=== PATIENT | male | born 1970 | race Caucasian/White ===

== ENCOUNTER → 2019-10-16 | Outpatient (CLI) | payer OTHER ==
--- NOTE | 2019-10-17 13:17 | SLEEP ---
DATE OF STUDY: 10/16/2019 SLEEP STUDY ATTENDING PHYSICIAN: Dr. Ayla Chaidez. The patient is a 49-year-old who weighs 250 pounds with a BMI of 36. The patient underwent split night study performed at [facility]. During the night study, the patient spent 438 minutes in bed and slept for 316 minutes with a sleep efficiency of 72%. Sleep latency was 14 minutes with a REM latency of 93 minutes. Sleep architecture showed increased stage 1 and stage 2 sleep, increased slow wave and reduced REM sleep. During the initial diagnostic portion of the study, the patient slept for 89 minutes. The patient had 40 hypopneas, no obstructive apneas, 1 mixed apnea, and no central apneas. The patient's AHI was 28 per hour with a REM AHI of 53 per hour and a supine AHI of 46 per hour. EKG monitoring revealed normal sinus rhythm, average heart rate 78 beats per minute, no arrhythmias observed. No PLM seen. Nocturnal oximetry study revealed an average oxygen saturation of 94% with lowest of 87%. The patient met the criteria for CPAP initiation. It was started at 5 cm water and titrated up to 13 cm water. At the final pressure, the patient slept for 44 minutes. The patient's AHI was reduced to 1 per hour. The patient had no REM sleep, but supine sleep. The patient used a large size mask. IMPRESSION: 1. Moderate obstructive sleep apnea with worsening during supine and REM sleep. Total AHI 28 per hour with a supine AHI of 46 per hour and a REM AHI of 53 per hour. 2. Nocturnal hypoxia secondary to obstructive sleep apnea, but resolved with CPAP. 3. No evidence of periodic leg movements. RECOMMENDATIONS: 1. CPAP at 13 cm water completely eliminated the patient's sleep apnea and should be used on a nightly basis. 2. Follow up in 4-6 weeks to assess compliance with CPAP and to document clinical improvement. 3. Weight loss is strongly advised. 4. Avoid T[employer] depressants. 5. Caution regarding driving until symptoms of sleep apnea resolve with the use of CPAP. KAILEE HERNANDEZ MD DR: FÉLIX/hasmukh JOB#: [id number] / [id number] AYLA Ruth MD
== END | disposition home or self-care (01) ==
LOC: RT 18:56
PROVIDERS: ATTEND Family Medicine
DX: G47.33 Obstructive sleep apnea (adult) (pediatric) (principal); G47.34 Idiopathic sleep related nonobstructive alveolar hypoventilation; Z68.36 Body mass index [BMI] 36.0-36.9, adult
CPT/HCPCS: 95810

== ENCOUNTER → 2020-09-10 | Outpatient (CLI) | payer OTHER ==
[2020-09-10 13:33] LABS: BASO % 1 % (0-3); EOS # 0.1 x10^3/uL (0.0-0.7); EOS % 2 % (0-3); HEMATOCRIT 46.1 % (39.0-53.0); HEMOGLOBIN 16.3 g/dL (13.0-17.5); LYMPH # 1.7 x10^3/uL (1.0-4.8); LYMPH % 31 % (24-48); MEAN CORPUSCULAR HEMOGLOBIN 31 pg (25-35); MEAN CORPUSCULAR HGB CONC 35 g/dL (31-37); MEAN CORPUSCULAR VOLUME 88 fL (79-100); MONO # 0.5 x10^3/uL (0.0-1.1); MONO % 9 % (0-9); NEUT # 3.2 x10^3/uL (1.8-7.7); NEUT % 58 % (31-73); PLATELET COUNT 283 x10^3/uL (140-400); RED BLOOD COUNT 5.25 x10^6/uL (4.30-5.70); RED CELL DISTRIBUTION WIDTH 13.2 % (11.5-14.5); WHITE BLOOD COUNT 5.6 x10^3/uL (4.0-11.0)
[2020-09-10 13:55] LABS: ALBUMIN 4.7 g/dL (3.4-5.0); ALBUMIN/GLOBULIN RATIO 1.6 (1.0-1.7); CALCIUM 9.5 mg/dL (8.5-10.1); CREATININE 1.1 mg/dL (0.7-1.3); GFR 71.4; POTASSIUM 4.1 mmol/L (3.5-5.1); TOTAL BILIRUBIN 1.1 mg/dL (0.2-1.0); TOTAL PROTEIN 7.7 g/dL (6.4-8.2)
[2020-09-10 13:56] LABS: CHOLESTEROL/HDL RATIO 4.3
[2020-09-10 14:05] LABS: FREE T4 0.96 ng/dL (0.76-1.46); THYROID STIM HORMONE (TSH) 0.85 uIU/mL (0.358-3.74)
== END ==
LOC: LAB 13:15
PROVIDERS: ATTEND Family Medicine
DX: I10 Essential (primary) hypertension (principal)
CPT/HCPCS: 36415; 80053; 80061; 84439; 84443; 85025